=== PATIENT | female | born 1975 | race Two or more races ===

== ENCOUNTER 2025-04-19 12:40 | Emergency (ER) | payer OTHER ==
[~2025-04-19] VITALS: Ht 160 cm; Wt 64.4 kg
[2025-04-19] MEDS ORDERED: CARVEDILOL12.5 M1 PO (13:29)
[2025-04-19] MEDS ORDERED: TOPIRAMATE ER100 M1 PO (13:29)
[2025-04-19] MEDS ORDERED: VISTARIL50 MG/ML IM (13:30)
[2025-04-19] MEDS ORDERED: 0.9 % SODIUM CHLORIDE 500 ML IV SCH (14:30)
[2025-04-19] MEDS ORDERED: MORPHINE SULFATE 2 MG/ML CARTRIDGE IV ONE (14:30)
[2025-04-19 14:50] LABS: URINE APPEARANCE Cloudy; URINE BILIRRUBIN Small (NEGATIVE); URINE BLOOD Large; URINE COLOR Orange; URINE GLUCOSE Negative (NEGATIVE); URINE LEUKOCYTE Small; URINE NITRATE Negative; URINE PROTEIN 30 (NEGATIVE); URINE UROBILINOGEN 0.2 E.U./dl
[2025-04-19 14:51] LABS: BASO % 0.2 % (0.1-1.2); EOS # 0.00 (0.04-0.54); EOS % 0.0 % (0.7-7.0); LYMPH # 1.71 (1.18-3.74); LYMPH % 12.7 % (19.3-53.1); MEAN PLATELET VOLUME 10.20 fl (9.4-12.4); MONO # 1.25 (0.24-0.82); MONO % 9.3 % (4.7-12.5); NEUT # 10.41 (1.56-6.13); NEUT % 77.5 % (34.0-71.1); RED CELL DISTRIBUTION WIDTH 19.5 % (11.6-14.4)
[2025-04-19 14:53] LABS: URINE BACTERIA 43.1 uL (0.0-1933); URINE CAST 1.75 uL (0.0-1.40); URINE EPITHELIAL CELLS 26.9 uL (0.0-38.8); URINE WBC 23.5 uL (0.0-23.2)
[2025-04-19 15:22] LABS: URINE KETONE 40 (NEGATIVE); URINE RBC > 10558.9 uL (0.0-20.8)
[2025-04-19 15:53] LABS: ALT/SGPT 50.0 U/L (12-78); AST/SGOT 27.0 U/L (15-37); BILIRUBIN TOTAL 0.45 mg/dL (0.3-1.2); BILIRUBIN,CONJUGATED 0.11 mg/dL (0.0-0.2); BUN CREA RATIO 20.0 (7.0-25.0); CREATININE SERUM 0.79 mg/dL (0.55-1.02); GFR 76.72; GLOBULINA 3.6 G/DL (2.4-3.5); GLUCOSE FASTING 77.0 mg/dL (65-100); OSMOLALITY SERUM 281.0 MOSM/KG (275-295)
[2025-04-19] MEDS ORDERED: DIATRIZOATE MEGLUMINE, SODIUM 30 ML BOTTLE ONE (16:45)
[2025-04-19] MEDS ORDERED: ONDANSETRON HCL 2 MG/ML VIAL ONE (16:52)
[2025-04-19] MEDS ORDERED: ONDANSETRON HCL 2 MG/ML VIAL IV ONE (17:00)
[2025-04-19] MEDS ORDERED: ACETAMINOPHEN 500 MG GEL..CAP PO ONE (19:37)
[2025-04-19] MEDS ORDERED: PIPERACILLIN/TAZOBACTAM SODIUM 3.375 GM VIAL IV ONE ×2 (20:00→20:18)
[2025-04-19] MEDS ORDERED: PEPCID AC20 MG PO (21:18)
[2025-04-19] MEDS ORDERED: NORFLEX100MG PO (21:18)
[2025-04-19] MEDS ORDERED: BACTRIM DS TAB1 EACH PO (21:18)
== END 2025-04-19 21:40 | disposition home or self-care (01) ==
LOC: ER 12:40
PROVIDERS: Emergency Medicine
DX: R10.9 Unspecified abdominal pain (principal); Z98.84 Bariatric surgery status; I10 Essential (primary) hypertension; I31.9 Disease of pericardium, unspecified; E16.1 Other hypoglycemia; Z87.442 Personal history of urinary calculi; N83.291 Other ovarian cyst, right side